=== PATIENT | female | born 1970 | race Two or more races ===

== ENCOUNTER → 2024-08-14 | Outpatient (CLI) | payer MEDICAID, SELFPAY ==
--- NOTE | 2024-08-14 09:00 | XR_ITS ---
Examination: Breast ultrasound, unilateral, left Date and time of exam: August 14, 2024 0951 hours INDICATIONS: Left breast pain beginning 4 months ago, history negative left breast biopsy Technique: Real-time braun scale ultrasonographic imaging performed left breast including all 4 quadrants as well as nipple retroareolar and axillary region. Findings: 1:00 oval mass lobular margins 4 x 4 by 6 mm IMPRESSION: BI-RADS Category 3: Probably benign findings Recommend 1 additional 6 month left breast sonogram follow-up to document stability of solid nodule 1:00 position left breast
--- NOTE | 2024-08-14 09:30 | XR_ITS ---
Examination: Diagnostic digital mammography, bilateral Computer aided detection 3-D breast Tomosynthesis, bilateral Date and time of exam: August 14, 2024 1003 hours INDICATIONS: Bilateral breast pain beginning 4 months ago Technique: Nonmagnified MLO, CC views of the breasts to been obtained, reconstructed from 3-D Tomosynthesis images. R2 computer aided detection program utilized for evaluation of suspicious masses and/or abnormal calcifications. 3-D Tomosynthesis images obtained. Findings: Scattered areas of fibroglandular density. 1:00 focal asymmetry right breast indistinct margins Impression: BI-RADS Category 0: Incomplete: Need additional imaging evaluation 1:00 focal asymmetry 10 mm, indistinct margins, recommend follow-up spot tomographic views of this asymmetry.
== END | disposition home or self-care (01) ==
LOC: CDIM 09:28
PROVIDERS: PCP Nurse Practitioner Family; Referring Provider Nurse Practitioner Family; Visit Provider Nurse Practitioner Family
DX: R92.8 Other abnormal and inconclusive findings on diagnostic imaging of breast (principal); N64.89 Other specified disorders of breast; N63.21 Unspecified lump in the left breast, upper outer quadrant
CPT/HCPCS: 76641; 77062; 77066; G0279